=== PATIENT | female | born 1955 | race Caucasian/White ===

== ENCOUNTER 2016-10-06 21:54 | Inpatient (IN) | payer OTHER ==
[~2016-10-06] VITALS: Ht 162.6 cm; Wt 78.9 kg
[~2016-10-06 21:54] MED LIST: ZOCOR20 M1 PO
--- NOTE | 2016-10-06 22:13 | NUR ---
PER PT HAD A CT ON WEDNESDAY, CALLED BY DR LAMB WITH RESULTS, RETURNED CALL FROM GUIDO AT DR SHARP..... TOLD TO COME TO ED FOR IV ANTIBIOTICS. SCHEDULED TO SEE DR. DOMINGUEZ WEDNESDAY
--- NOTE | 2016-10-06 22:57 | NUR ---
LABS SENT (BLUE,SST,LAV,SHERMAN, BC #1)
[2016-10-06 23:01] LABS: ABSOLUTE BASOPHIL COUNT 0 /CUMM (0.0-0.2); ABSOLUTE EOSINOPHIL COUNT 0.3 /CUMM (0.0-0.7); ABSOLUTE GRANULOCYTE CT 10.3 /CUMM (1.4-6.5); ABSOLUTE LYMPH COUNT 1.4 /CUMM (1.2-3.4); ABSOLUTE MONOCYTE COUNT 0.7 /CUMM (0.10-0.60); BASOPHIL % 0.3 % (0.0-2.0); GRANULOCYTE % 80.8 % (42.2-75.2); HEMATOCRIT 35.3 % (37-47); MEAN CORPUSCULAR HGB 27.7 PG (27.0-31.0); MEAN CORPUSCULAR HGB CONC 32.7 G/DL (33.0-37.0); MEAN CORPUSCULAR VOLUME 84.7 FL (81.0-99.0); MEAN PLATELET VOLUME 6.8 FL (7.4-10.4); PLATELET COUNT 511 /CUMM (130-400); RBC DISTRIBUTION WIDTH 14.1 % (11.5-14.5); RED BLOOD CELL CT 4.17 /CUMM (4.20-5.40); WHITE BLOOD CELL COUNT 12.7 /CUMM (4.8-10.8)
[2016-10-06] MEDS ORDERED: VITAMIN D2000 UNIT PO (23:02)
[2016-10-06] MEDS ORDERED: OMEPRAZOLE40 M1 PO (23:02)
[2016-10-06] MEDS ORDERED: ADVIL200 M1 PO (23:03)
[2016-10-06] MEDS ORDERED: GLYCOLAX119 GM PO (23:03)
[2016-10-06] MEDS ORDERED: MAGNESIUM400 M1 PO (23:03)
--- NOTE | 2016-10-06 23:08 | NUR ---
BLOOD CULTURE #2 SENT
--- NOTE | 2016-10-06 23:45 | ED GI/GU/ABDOMINAL COMPLAINT ---
History of Present Illness General Chief Complaint: General Adult Stated Complaint: " SIB FOR IV ANTIBIOTIC" Source: patient, old records Exam Limitations: no limitations Vital Signs & Intake/Output Vital Signs & Intake/Output Vital Signs Date Time Temp Pulse Resp B/P B/P Pulse O2 O2 Flow FiO2 Mean Ox Delivery Rate 10/07 0024 98 Room Air 10/06 2215 97.9 81 22 129/87 98 ED Intake and Output 10/07 0000 10/06 1200 Intake Total Output Total Balance Patient 165 lb Weight Allergies Coded Allergies: oxycodone (PER PT DOES NOT WANT NARCOTICS 10/06/16) Reconcile Medications Cholecalciferol (Vitamin D3) (Vitamin D) (Unknown Strength) CAPSULE (Unknown Dose) PO DAILY SUPPLEMENT (Reported) Ibuprofen (Advil) 200 MG CAPSULE 2 CAP PO PRN PAIN (Reported) Magnesium Oxide (Magnesium) (Unknown Strength) CAPSULE (Unknown Dose) PO DAILY SUPPLEMENT (Reported) Omeprazole 40 MG CAPSULE.DR 1 CAP PO DAILY GI (Reported) Polyethylene Glycol 3350 (Glycolax) 17 GRAM/DOSE POWDER 17 GM PO PRN GI ( Reported) Simvastatin (Zocor*) 20 MG TABLET 1 TAB PO QPM CHOLESTEROL (Reported) Triage Note: PER PT HAD A CT ON WEDNESDAY, CALLED BY DR LAMB WITH RESULTS, RETURNED CALL FROM GUIDO AT DR SHARP..... TOLD TO COME TO ED FOR IV ANTIBIOTICS. SCHEDULED TO SEE DR. DOMINGUEZ WEDNESDAY Triage Nurses Notes Reviewed? yes ? N Is pt currently ? No HPI: Patient has had bilateral, but left greater than right, lower quadrant pressure feeling for the past 2 months. Patient has been seen by her crimper operator and had a normal ultrasound. Patient does have a history of diverticulosis and diverticulitis. She saw her primary care physician who put her on Flagyl. Patient took the 10 day course of Flagyl however her symptoms continued. Patient saw her chief dog license inspector who scheduled her for a colonoscopy and order an outpatient CAT scan. Patient had a CAT scan performed on the . Her chief dog license inspector has been trying to get a hold of her since then. Patient finally did talk to them today and she was instructed to come into the emergency department for IV antibiotics. Patient states the pressure sensation is constant and there are no aggravating or mitigating factors. There is no radiation. She rates it at 3 out of 10. Past History Travel History Traveled to [place] past 21 day No Medical History Any Pertinent Medical History? see below for history Neurological: NONE EENT: NONE Cardiovascular: CHOL Respiratory: NONE Gastrointestinal: CONSTIPATION, GERD Hepatic: NONE Renal: NONE Musculoskeletal: NONE Psychiatric: NONE Surgical History Surgical History: non-contributory Psychosocial History What is your primary language Northern Irish Tobacco Use: Current Daily Use Daily Tobacco Use Amount/Type: => 5 Cigarettes daily ETOH Use: RECOVERING ALCOHOLIC Illicit Drug Use: denies illicit drug use Family History Hx Contributory? No Review of Systems Review of Systems Constitutional: Reports: see HPI, chills, fever. EENTM: Reports: no symptoms. Respiratory: Reports: no symptoms. Cardiovascular: Reports: no symptoms. GI: Reports: see HPI, abdominal pain. Genitourinary: Reports: no symptoms. Musculoskeletal: Reports: no symptoms. Skin: Reports: no symptoms. Neurological/Psychological: Reports: no symptoms. Hematologic/Endocrine: Reports: no symptoms. Immunologic/Allergic: Reports: no symptoms. All Other Systems: Reviewed and Negative Physical Exam Physical Exam General Appearance: well developed/nourished, alert, awake, anxious, mild distress Head: atraumatic, normal appearance Eyes: Bilateral: PERRL, EOMI. Ears, Nose, Throat, Mouth: hearing grossly normal, moist mucous membrane Neck: normal inspection, supple, full range of motion Respiratory: normal breath sounds, chest non-tender, no respiratory distress, lungs clear Cardiovascular: regular rate/rhythm, normal peripheral pulses Gastrointestinal: normal bowel sounds, soft, no organomegaly, tenderness (LLQ), NO REBOUND OR GUARDING Back: normal inspection, normal range of motion Extremities: normal range of motion Neurologic/Psych: no motor/sensory deficits, awake, alert, oriented x 3, normal mood/affect Skin: intact, normal color, warm/dry Core Measures ACS in differential dx? No Severe Sepsis Present: No Septic Shock Present: No Progress Differential Diagnosis: AAA, biliary colic, colon cancer, diverticulitis, gastritis, hepatitis, ischemic bowel, inflamm bowel dis, pancreatitis Plan of Care: Orders Procedure Date/time Status Nothing by Mouth 10/07 B Active PROTHROMBIN TIME 10/07 599 Active CBC WITHOUT DIFFERENTIAL 10/07 599 Active BASIC ELECTROLYTES PLUS BUN&CR 10/07 599 Active Admit to inpatient 10/070 Active Pathway - chart 10/07 12 Active Patient Data 05/31 0013 Active EKG 10/07 12 Active Code Status 10/07 12 Active VTE Mechanical Prophylaxis 10/07 UNK Active Vital Signs 10/07 UNK Active Intake & Output 10/07 UNK Active Activity/Ambulation 10/07 UNK Active BLOOD CULTURE 10/06 2222 Active LACTIC ACID 10/06 2222 Complete COMPREHENSIVE METABOLIC PANEL 10/06 2222 Complete CBC WITHOUT DIFFERENTIAL 10/06 2222 Complete Current Medications Sig/Gabbi Start time Last Medication Dose Stop Time Status Admin Omeprazole 40 MG DAILY AC 10/08 0700 UNVr (Prilosec) Atorvastatin Calcium 10 MG ONCE ONE 10/07 1700 AC (Lipitor) 10/07 170 Magnesium Oxide 400 MG DAILY 10/07 1000 UNVr (Mag-Ox) Ampicillin Sodium/ 3,000 MG Q6 10/07 06 UNVr Sulbactam Sodium (Unasyn) Sodium Chloride 100 ML (Normal Saline 0.9%) Acetaminophen 650 MG Q6P PRN 10/07 14 UNVr (Tylenol) Acetaminophen/ 1 TAB Q4P PRN 10/07 14 UNVr Hydrocodone Bitart (Vicodin) Acetaminophen/ 2 TAB Q4 HRS NEEDED PRN 10/07 14 UNVr Hydrocodone Bitart (Vicodin) Dextrose/Sodium 1,000 ML Q13H 10/07 001 AC 10/07 Chloride 0030 (D5W-1/2 Normal Saline 1000ML) Morphine Sulfate 4 MG Q4 HRS NEEDED PRN 10/07 14 UNVr (Morphine) Ondansetron HCl 4 MG Q6P PRN 10/07 14 UNVr (Zofran) Promethazine HCl 12.5 MG Q6P PRN 10/07 14 UNVr (Phenergen) 10/14 001 Laboratory Tests 10/06/16 2250: Anion Gap 13, Estimated GFR > 60, BUN/Creatinine Ratio 17.8, Glucose 99, Lactic Acid 1.0, Calcium 9.2, Total Bilirubin 0.5, AST 22, ALT 36, Alkaline Phosphatase 95, Total Protein 6.5, Albumin 3.4 L, Globulin 3.1, Albumin/Globulin Ratio 1.1, CBC w Diff NO MAN DIFF REQ, RBC 4.17 L, MCV 84.7, MCH 27.7, RDW 14.1, MPV 6.8 L, Gran % 80.8 H, Lymphocytes % 11.0 L, Monocytes % 5.9, Eosinophils % 2.0, Basophils % 0.3, Absolute Granulocytes 10.3 H, Absolute Lymphocytes 1.4, Absolute Monocytes 0.7 H, Absolute Eosinophils 0.3, Absolute Basophils 0, PUBS MCHC 32.7 L Microbiology 10/06 2304 BLOOD: Blood Culture - RECD 10/06 2249 BLOOD: Blood Culture - RECD Initial ED EKG: NSR, no ST T wave changes Departure Departure Disposition: STILL A PATIENT Condition: Fair Clinical Impression Primary Impression: Diverticular disease of intestine with perforation and abscess Referrals: BAKER DANIKA WYMAN (PCP/Family) Departure Forms: Customer Survey General Discharge Information Admission Note Spoke With: ALBERTO WYMAN,ELIJAH Miles Documentation of Exam: Documentation of any treatments & extenuating circumstances including Concerns Regarding Discharge (functional status, medication knowledge or non-compliance, living conditions, etc.) that warrant an admission rather than observation: [NPO , IV FLUIDS, IV ABX, MAY REQUIRE SURGICAL INTERVENTION]
--- NOTE | 2016-10-07 00:06 | NUR ---
IV ACCESS ESTABLISHED BY THIS RN, LAC #[id number], 3G UNASYN IV INFUSING PER EMAR.
--- NOTE | 2016-10-07 00:37 | NUR ---
PT PROVIDED WITH THANIA LUGO, THIS RN SPOKE WITH SURGICAL PA BRITTNEY Montoya WHO STATED THAT PT IS ABLE TO DRINK CLEAR LIQUIDS UNTIL 0200.
--- NOTE | 2016-10-07 01:16 | NUR ---
REPORT GIVEN TO JYOTI ALEXANDER.
[2016-10-07 01:30] VITALS: BP 134/82
--- NOTE | 2016-10-07 01:30 | NUR ---
NURSING NOTE: LATE ENTRY: PT ARRIVED TO FLOOR VIA WHEELCHAIR FROM ED AT 0130. PT IS A&OX3, INDEPENDENT, ON ROOM AIR, NO DISTRESS NOTED. VSS AT THIS TIME. AFEBRILE. PTS SKIN INTACT, NO BREAKDOWN NOTED. PT IS NPO AND IS RECEIVING IV FLUIDS @ 75 ML/HR. PT DENIES PAIN BUT STATES SHE FEELS "BLOATED AND UNCOMFORTABLE". PT REPOSITIONED AND GIVEN A WARM PACK AND STATES THAT IT IS HELPING HER WITH THE "UNCOMFORTABLENESS". BELLY SOFT/DISTENDED, +BS IN ALL 4 QUADS, DENIES N/V. BS 62. PT DENIES SYMPTOMS. POSSIBLE SURGERY IN MORNING. PT VOIDING IN TOILET W/ NO DIFFICULTIES. HAT IN BATHROOM. PT SHOWN HOW TO USE CALL LIGHT SYSTEM. INFORMATION PACKET GIVEN. AWAIT FURTHER ORDERS FROM SURGICAL PA. WILL CONTINUE TO MONITOR.
[2016-10-07 06:36] VITALS: BP 118/72
--- NOTE | 2016-10-07 07:46 | PN- General Surgery ---
Subjective Subjective: Feels a little better, no abdominal pain, no nausea or vomiting, no fevers or chills. No bowel movement, passing gas. Objective Vital Signs and I&Os Vital Signs Date Time Temp Pulse Resp B/P B/P Pulse O2 O2 Flow FiO2 Mean Ox Delivery Rate 10/07 0636 98.6 85 20 118/72 94 Room Air 10/07 0130 98.3 98 20 134/82 98 Room Air 10/07 0024 98 Room Air 10/06 2215 97.9 81 22 129/87 98 Intake & Output 10/07 0800 10/07 0000 10/06 1600 10/06 0800 10/06 0000 10/05 1600 Intake Total 600 Output Total Balance 600 Intake, IV 600 Intake, Oral 0 Patient 174 lb 165 lb Weight Weight Reported by Patient Measurement Method Physical Exam: Gen.: NAD Cardiac: S1-S2 RRR Pulmonary: CTA B Abdomen: Soft, nondistended, nontender, quiet bowel sounds throughout Extremities: Calves Soft Nontender bilaterally, without edema Current Medications: Current Medications Sig/Gabbi Start time Last Medication Dose Route Stop Time Status Admin Acetaminophen 650 MG Q6P PRN 10/07 0015 AC PO Acetaminophen/ 1 TAB Q4P PRN 10/07 001 DC Hydrocodone Bitart PO Acetaminophen/ 2 TAB Q4 HRS NEEDED PRN 10/07 001 DC Hydrocodone Bitart PO Ampicillin Sodium/ 3,000 MG Q6 10/07 0600 AC 10/07 Sulbactam Sodium IV 0530 Sodium Chloride 100 ML Ampicillin Sodium/ 0 .STK-MED ONE 10/06 2359 DC Sulbactam Sodium .ROUTE Ampicillin Sodium/ 3,000 MG ONCE ONE 10/06 2345 DC 10/07 Sulbactam Sodium IV 10/07 0014 0007 Sodium Chloride 100 ML Atorvastatin Calcium 10 MG ONCE ONE 10/07 1700 AC PO 10/07 1701 Dextrose/Sodium 1,000 ML Q13H 10/07 0015 AC 10/07 Chloride IV 0030 Insulin Human Regular 0 TIDAC/HS 10/07 0800 CAN SC Insulin Human Regular 0 Q6 10/07 0739 AC SC Magnesium Oxide 400 MG DAILY 10/07 1000 AC PO Morphine Sulfate 4 MG Q4 HRS NEEDED PRN 10/07 0015 AC IV Omeprazole 40 MG DAILY AC 10/08 0700 AC PO Ondansetron HCl 4 MG Q6P PRN 05/31 0015 AC IV Promethazine HCl 12.5 MG Q6P PRN 10/07 14 AC IV 10/14 13 Tramadol HCl 50 MG Q4 PRN 10/07 99 AC PO Tramadol HCl 100 MG Q4P PRN 10/07 99 AC PO Results Last 48 Hours of Labs: Laboratory Tests 10/07 10/07 10/06 0627 0123 2250 Chemistry Sodium (137 - 145 mmol/L) Pending 136 L Potassium (3.5 - 5.1 mmol/L) Pending 3.7 Chloride (98 - 107 mmol/L) Pending 101 Carbon Dioxide (22 - 30 mmol/L) Pending 22 Anion Gap (5 - 16) Pending 13 BUN (7 - 17 mg/dL) Pending 16 Creatinine (0.5 - 1.0 mg/dL) Pending 0.9 Estimated GFR (>60 ml/min) > 60 BUN/Creatinine Ratio (7 - 25 %) Pending 17.8 Glucose (65 - 99 mg/dL) 99 Lactic Acid (0.7 - 2.1 mmol/L) Cancelled 1.0 Calcium (8.4 - 10.2 mg/dL) 9.2 Total Bilirubin (0.2 - 1.3 mg/dL) 0.5 AST (14 - 36 U/L) 22 ALT (9 - 52 U/L) 36 Alkaline Phosphatase (<127 U/L) 95 Total Protein (6.3 - 8.2 g/dL) 6.5 Albumin (3.5 - 5.0 g/dL) 3.4 L Globulin (1.9 - 4.2 gm/dL) 3.1 Albumin/Globulin Ratio (1.1 - 2.2 %) 1.1 Coagulation PT Pending INR Pending Hematology CBC w Diff Pending NO MAN DIFF REQ WBC (4.8 - 10.8 /CUMM) Pending 12.7 H RBC (4.20 - 5.40 /CUMM) Pending 4.17 L Hgb (12.0 - 16.0 G/DL) Pending 11.5 L Hct (37 - 47 %) Pending 35.3 L MCV (81.0 - 99.0 FL) Pending 84.7 MCH (27.0 - 31.0 PG) Pending 27.7 RDW (11.5 - 14.5 %) Pending 14.1 Plt Count (130 - 400 /CUMM) Pending 511 H MPV (7.4 - 10.4 FL) Pending 6.8 L Gran % (42.2 - 75.2 %) 80.8 H Lymphocytes % (20.5 - 51.1 %) 11.0 L Monocytes % (1.7 - 9.3 %) 5.9 Eosinophils % (0 - 5 %) 2.0 Basophils % (0.0 - 2.0 %) 0.3 Absolute Granulocytes (1.4 - 6.5 /CUMM) 10.3 H Absolute Lymphocytes (1.2 - 3.4 /CUMM) 1.4 Absolute Monocytes (0.10 - 0.60 /CUMM) 0.7 H Absolute Eosinophils (0.0 - 0.7 /CUMM) 0.3 Absolute Basophils (0.0 - 0.2 /CUMM) 0 PUBS MCHC (33.0 - 37.0 G/DL) Pending 32.7 L Recent Imaging Studies: 10/01/16 CT Abd/pelvis: "sigmoid colon is abnormal, shows multiple colonic diverticuli, abnormal mural thickening, surrounding pericolonic inflammatory changes, multiloculated thick-walled fluid collections associated with surrounding inflammatory changes are noted around the sigmoid colon, consistent with multiloculated pericolonic abscesses. The lowermost component measures approximately 4.8 x 2.8 cm. The middle component measures approximately 3.6 x 3.1 cm while the superior most part of the abscess measures approximately 3.3 x 2.5 cm. There are a few air pockets identified within the superiormost part of the abscess There is no evidence of any fistula visualized. There is no bowel obstruction present. There is no free perforation present. IMPRESSION: Abnormal contrast enhanced CT scan of the abdomen and pelvis showing features consistent with acute sigmoid colonic diverticulitis complicated by multiloculated abscess formation within the pelvis, without fistula formation, free perforation or superimposed obstruction." Assessment/Plan Assessment/Plan A: 61F with multiloculated pelvic collection related to sigmoid diverticulitis as visualized on CT scan performed approximately 1 week ago, leukocytosis of 13, 000 at admission, otherwise stable without abdominal complaints. P: Plan to be discussed with attending. Possible IR drainage if feasible. Will discuss with Dr. Alston and radiologist. Continue nothing by mouth with IV fluids. DVT prophylaxis. Antibiotics. A.m. labs pending Core Measures/Miscellaneous Venous Thromboembolism VTE Risk Factors: Age > 40 VTE Contraindications: No Contraindications VTE Diagnosis: No Beta Justa Is Beta Justa a Home Med? No Antibiotics Is Patient on Antibiotics? Yes
[2016-10-07 08:09] LABS: ABSOLUTE BASOPHIL COUNT 0 /CUMM (0.0-0.2); ABSOLUTE EOSINOPHIL COUNT 0.3 /CUMM (0.0-0.7); ABSOLUTE GRANULOCYTE CT 8.8 /CUMM (1.4-6.5); ABSOLUTE LYMPH COUNT 1.1 /CUMM (1.2-3.4); ABSOLUTE MONOCYTE COUNT 0.9 /CUMM (0.10-0.60); BASOPHIL % 0.3 % (0.0-2.0); EOSINOPHIL % 2.9 % (0-5); GRANULOCYTE % 79.1 % (42.2-75.2); HEMATOCRIT 33.2 % (37-47); MEAN CORPUSCULAR HGB 27.8 PG (27.0-31.0); MEAN CORPUSCULAR HGB CONC 32.7 G/DL (33.0-37.0); MEAN PLATELET VOLUME 7.3 FL (7.4-10.4); PLATELET COUNT 442 /CUMM (130-400); RBC DISTRIBUTION WIDTH 13.8 % (11.5-14.5); WHITE BLOOD CELL COUNT 11.2 /CUMM (4.8-10.8)
[2016-10-07 08:16] LABS: PT 12.6 SEC (9.4-12.5)
--- NOTE | 2016-10-07 10:48 | History & Physical Pre-Op ---
General Information and HPI MD Statement: I have seen and personally examined ADELINA QUINTERO and documented this H&P. The patient is a 61 year old F who presented with a patient stated chief complaint of []. History of Present Illness: 61-year-old woman presents with 3 months duration of lower abdominal and perirectal pain. She had an workup as an outpatient including a trial of oral antibiotics which failed to relieve her symptoms. An outpatient CT scan of the abdomen pelvis was performed which showed diverticulitis with a pericolonic abscess. She was contacted by her primary care physician to report to the emergency room for admission to the hospital. Reports her pain has not improved since her treatment began. No fevers chills or sweats. She complains of irregular bowel function and perirectal pain. She also has lower billateral abdominal pain. Allergies/Medications Allergies: Coded Allergies: oxycodone (PER PT DOES NOT WANT NARCOTICS 10/06/16) Home Med list Cholecalciferol (Vitamin D3) (Vitamin D) (Unknown Strength) CAPSULE (Unknown Dose) PO DAILY SUPPLEMENT (Reported) Ibuprofen (Advil) 200 MG CAPSULE 2 CAP PO PRN PAIN (Reported) Magnesium Oxide (Magnesium) (Unknown Strength) CAPSULE (Unknown Dose) PO DAILY SUPPLEMENT (Reported) Omeprazole 40 MG CAPSULE.DR 1 CAP PO DAILY GI (Reported) Polyethylene Glycol 3350 (Glycolax) 17 GRAM/DOSE POWDER 17 GM PO PRN GI ( Reported) Simvastatin (Zocor*) 20 MG TABLET 1 TAB PO QPM CHOLESTEROL (Reported) Past History Medical History Blood Transfusion Hx: No Neurological: NONE EENT: NONE Cardiovascular: hyperlipidemia Respiratory: NONE Gastrointestinal: diverticulitis, GERD Hepatic: NONE Renal: NONE Musculoskeletal: NONE Psychiatric: NONE Endocrine: NEWLY DIAGNOSED TYPE 2 DAIBETES History of MRSA: No History of VRE: No History of CDIFF: No Isolation History: Standard Surgical History Pertinent Surgical History: bunions Past Family/Social History Psychosocial History Where Do You Live? Home Services at Home None Smoking Status: Current Everyday Smoker ETOH Use: RECOVERING ALCOHOLIC Illicit Drug Use: denies illicit drug use Review of Systems Review of Systems: No exertional chest pain. No exertional dyspnea. Abdominal pain per HPI. Remainder 12 points negative Exam & Diagnostic Data Last 24 Hrs of Vital Signs/I&O Vital Signs Date Time Temp Pulse Resp B/P B/P Pulse O2 O2 Flow FiO2 Mean Ox Delivery Rate 0531 0636 98.6 85 20 118/72 94 Room Air 10/07 0130 98.3 98 20 134/82 98 Room Air 10/07 0024 98 Room Air 10/06 2215 97.9 81 22 129/87 98 Intake & Output 10/07 1600 10/07 0800 10/07 0000 Intake Total 600 Output Total Balance 600 Intake, IV 600 Intake, Oral 0 Number 1 Bowel Movements Patient 174 lb 165 lb Weight Weight Reported by Patient Measurement Method Physical Exam: Gen.: She looks well looks her stated age she is overweight. No distress HEENT: Anicteric PERRL EOMI Neck: Supple no adenopathy no JVD Chest: Nontender normal excursion normal effort Abdomen: Soft and tender bilateral lower quadrants and suprapubic region with involuntary guarding at the suprapubic site. There is no mass no hernias Extremities: No cyanosis clubbing or edema Last 24 Hrs of Labs/Js: Laboratory Tests 10/07/16 0627: Anion Gap 10, Estimated GFR > 60, BUN/Creatinine Ratio 21.7, PT 12.6 H, INR 1.20 H, CBC w Diff NO MAN DIFF REQ, RBC 3.90 L, MCV 85.0, MCH 27.8, RDW 13.8, MPV 7.3 L, Gran % 79.1 H, Lymphocytes % 9.4 L, Monocytes % 8.3, Eosinophils % 2.9, Basophils % 0.3, Absolute Granulocytes 8.8 H, Absolute Lymphocytes 1.1 L, Absolute Monocytes 0.9 H, Absolute Eosinophils 0.3, Absolute Basophils 0, PUBS MCHC 32.7 L 10/07/16 0123: Lactic Acid Cancelled 10/06/16 2250: Anion Gap 13, Estimated GFR > 60, BUN/Creatinine Ratio 17.8, Glucose 99, Lactic Acid 1.0, Calcium 9.2, Total Bilirubin 0.5, AST 22, ALT 36, Alkaline Phosphatase 95, Total Protein 6.5, Albumin 3.4 L, Globulin 3.1, Albumin/Globulin Ratio 1.1, CBC w Diff NO MAN DIFF REQ, RBC 4.17 L, MCV 84.7, MCH 27.7, RDW 14.1, MPV 6.8 L, Gran % 80.8 H, Lymphocytes % 11.0 L, Monocytes % 5.9, Eosinophils % 2.0, Basophils % 0.3, Absolute Granulocytes 10.3 H, Absolute Lymphocytes 1.4, Absolute Monocytes 0.7 H, Absolute Eosinophils 0.3, Absolute Basophils 0, PUBS MCHC 32.7 L Microbiology 10/06 2305 BLOOD: Blood Culture - RECD 10/06 2249 BLOOD: Blood Culture - RECD Diagnostic Data Other Results CT scan of the abdomen pelvis performed on 10/02/2015 was personally reviewed. Findings show multiple loops of sigmoid colon in the pelvis with a multiloculated pericolonic abscess deep in the pelvis. Images were personally reviewed with interventional radiologist who felt that a transgluteal approach could access one aspect of the abscess cavity. Assessment/Plan Assessment/Plan: This is a 61-year-old woman with prior episodes of acute diverticulitis all of which resolved with medical treatment. She now presents with complex abscess, pericolonic related to the likely acute diverticulitis. Her last colonoscopy was in 2007 and showed benign disease. At this point recommendations be made to continue medical management with IV broad-spectrum antibiotics, bowel rest. She will be taken to the interventional radiology suite for percutaneously drainage of the inferior most abscess. Hopefully they'll communicate with one another and can be drained through one site. Eventually colonic resection will be necessary given the extent of the abscess. Hopefully her infectious process can be temporized such that a single- stage resection can be performed at a later date. As Ranked By This Provider Problem List: 1. Diverticular disease of intestine with perforation and abscess Copies To: SHELTON AGUILAR APRN; OLIVIA WYMAN,DANIKA Florentino
--- NOTE | 2016-10-07 11:11 | NUR ---
nursing note: pt to have perc drain placement in IR; PT REQUESTING NO NARCOTICS DUE TO HX OF ETOH YEARS AGO. BRADLEY IN IR CALLED AND MADE AWARE, NOTE PLACE ON PREPROCEDURE CHECKLIST ALSO.
[2016-10-07 13:32] VITALS: BP 118/70
--- NOTE | 2016-10-07 13:36 | NUR ---
NURSING NOTE: PT LEFT FLOOR VIA STRETCHER WITH DISTIRBUTION FOR PERC DRAINAGE PLACEMENT IN IR. PT AWAKE, A/OX3, ROOM AIR, VITALS OBTAINED AND DOCUEMNTED, NPO. PT DENIES PAIN, DENTURES REMOVED, RINGS/NECKLACES ON PER PT; OK PER BRADLEY IN IR. AWAIT RETURN TO FLOOR
[2016-10-07 17:30] VITALS: BP 116/60
--- NOTE | 2016-10-07 17:53 | CT SCAN REPORT ---
PROCEDURE: CT PERCUTANEOUS PELVIC ABSCESS DRAINAGE CLINICAL INFORMATION: 61-year-old woman with a history of diverticular disease presenting with pelvic pain and low-grade fevers. Recent CT of the abdomen and pelvis was suggestive of the presence of multiple loculated diverticular pelvic abscesses. COMPARISON: CT of the abdomen and pelvis dated 10/01/2016. CORPORATE COMPLIANCE DIRECTOR: Evens Churchill M.D. DESCRIPTION: The patient was referred by Dr. Fredis Alston. Informed consent was obtained from the patient prior to the procedure. During this process, the procedure and potential alternatives was explained, along with the intended outcome and benefits. The risks of the procedure, as well as the risk of not doing the procedure, were discussed. The patient was given the opportunity to ask questions regarding the procedure and appeared competent to make medical decisions. A signed consent form which documents this discussion was placed in the medical record. The patient's prior imaging studies were reviewed. The patient was brought to the CT suite and a final timeout procedure was performed. The patient was placed prone in the CT gantry. IV moderate sedation was induced under my direction and supervision using Versed and fentanyl. The patient was continuously monitored by registered nurse. At no time was there evidence of instability. Bearing Press Machine Operator sections were obtained through the pelvis with a grid overlying the left buttock region. The abscesses were less conspicuous than on the prior CT and the sigmoid colon was not optimally opacified. The patient was rescanned with administration of rectal contrast administered with a balloon retention catheter under gravity. The previously described central collection in the upper pelvis opacified and appear to be connected to the sigmoid colon. There appear to be an ovoid inflammatory process in the lower left pelvis adjacent to the sigmoid colon at the level of the sciatic notch. The overlying soft tissues were sterilely prepped and draped. Maximum sterile barrier technique was maintained throughout the procedure. Superficial and deep anesthesia was administered using 1% lidocaine. Under CT fluoroscopic guidance, an 18-gauge [place] needle was introduced into the left perisigmoid collection via a left transgluteal approach maintaining a close proximity to the lateral margin of the sacrum. Approximately 3 mL of thick bloody pus was aspirated. The specimen was sent to microbiology for culture and sensitivity. Over an Amplatz stiff wire, serial fascial dilatations were performed allowing insertion of a 14 [place] locking pigtail catheter. A hand-injection of dilute contrast was performed through the drainage catheter which did not definitively demonstrate a connection to the sigmoid colon or the other questioned pelvic abscesses. The catheter was secured with 0-0 silk suture and a StatLock. A sterile dressing was applied. The catheter was connected to a gravity bag drainage. The patient tolerated the procedure well. There was no evidence of complications. DLP: 390.3 mGy-cm SEDATION TIME: 55 minutes SEDATION MEDICATIONS: 3 mg Versed, 150 mcg fentanyl COMPLICATIONS: None BLOOD LOSS: Scant IMPRESSION: Successful percutaneous drainage of a left lower perisigmoid hematoma/abscess via a transgluteal approach under CT fluoroscopic guidance. Specimen was sent for culture and sensitivity.
--- NOTE | 2016-10-07 18:01 | NUR ---
1725 PATIENT BACK ON FLOOR ALERT AND ORIENTED X 3. ON ROOM AIR. DENIES SHORTNESS OF BREATH. VITAL SIGNS STABLE. DENIES CHEST PAIN. + PULSES. DENIES NUMB/TINGLE DSG IS C/D/I. STEADY GAIT. SKIN C/D/I PATIENT RESTING AT THIS TIME. WILL CONTINUE TO MONITOR
[2016-10-07 19:48] VITALS: BP 110/62
[2016-10-07 21:52] VITALS: BP 128/68
[2016-10-08 02:01] VITALS: BP 110/58
[2016-10-08 06:15] VITALS: BP 120/64
[2016-10-08 07:59] LABS: ABSOLUTE BASOPHIL COUNT 0 /CUMM (0.0-0.2); ABSOLUTE EOSINOPHIL COUNT 0.1 /CUMM (0.0-0.7); ABSOLUTE GRANULOCYTE CT 9.3 /CUMM (1.4-6.5); ABSOLUTE LYMPH COUNT 1.1 /CUMM (1.2-3.4); ABSOLUTE MONOCYTE COUNT 0.9 /CUMM (0.10-0.60); BASOPHIL % 0.3 % (0.0-2.0); GRANULOCYTE % 81.7 % (42.2-75.2); HEMATOCRIT 31.8 % (37-47); MEAN CORPUSCULAR HGB 27.9 PG (27.0-31.0); MEAN CORPUSCULAR HGB CONC 32.7 G/DL (33.0-37.0); MEAN CORPUSCULAR VOLUME 85.3 FL (81.0-99.0); MEAN PLATELET VOLUME 7.2 FL (7.4-10.4); PLATELET COUNT 436 /CUMM (130-400); RBC DISTRIBUTION WIDTH 14.2 % (11.5-14.5); RED BLOOD CELL CT 3.73 /CUMM (4.20-5.40); WHITE BLOOD CELL COUNT 11.4 /CUMM (4.8-10.8)
--- NOTE | 2016-10-08 08:55 | PN- General Surgery ---
See Addendum Subjective Subjective: PT. STATES THAT HER PAIN IS NEARLY RESOLVED SINCE YESTERDAY. SHE DESCRIBES PAIN "SORENESS" REPORTS PASSING SMALL FLATUS Objective Vital Signs and I&Os Vital Signs Date Time Temp Pulse Resp B/P B/P Pulse O2 O2 Flow FiO2 Mean Ox Delivery Rate 10/08 0804 96 Room Air 10/08 0615 98.0 72 20 120/64 94 Room Air 10/08 0201 98.1 78 22 110/58 94 Room Air 10/07 2152 98.5 80 20 128/68 93 Room Air 10/07 1948 98.7 75 20 110/62 93 Room Air 10/07 1730 98.8 84 18 116/60 95 Room Air 10/07 1332 98.9 90 20 118/70 96 Room Air Intake & Output 10/08 1600 10/08 0800 10/08 0000 10/07 1600 10/07 0800 10/07 0000 Intake Total 650 600 600 Output Total 200 550 Balance 650 -200 50 600 Intake, IV 650 600 600 Intake, Oral 0 0 Number 1 Bowel Movements Output, Urine 200 550 Patient 174 lb 165 lb Weight Weight Reported by Patient Measurement Method ALERT, ORIENTED, LOOKS COMFORTABLE LUNGS CLEAR BILAT ABDOMEN OBESE, SOFT, NON DISTENDED, MINIMAL TENDERNESS TO PALPATION IN LOWER ABDOMEN/LLQ. IR DRAIN IN PLACED THROUGH BUTTOCK WITH ESSENTIALLY NO OUTPUT OVER NIGHT Assessment/Plan Assessment/Plan PT. ADMITTED WITH MULTIPLE TOMMIE SIGMOID COLONIC DIVERTICULAR ABSCESSES HOSP. DAY #2 SHE UNDERWENT IR DRAIN PLACEMENT YESTERDAY WHERE 3 CC OF THICK PUS WAS ASPIRATED IN IR AND TOMMIE GLUTEAL DRAIN WAS PLACED. THERE IS ESSENTIALLY NO OUTPUT OVER NIGHT SINCE. CLINICALLY SHE FEELS BETTER, HAS LESS PAIN , NO FEVER. SHE HAS MILD PERSISTENT LEUKOCYTOSIS. I AM CONCERNED HER ABSCESSES ARE NOT TOTALLY DRAINED SINCE THERE IS NO OUTPUT FROM CURRENT DRAIN DESPITE FLUSHES AND GIVEN SHE HAD OTHER COLLECTIONS DOCUMENTED ON CT. WILL DISCUSS CASE AND REVIEW CT SCAN WITH SURGEON, DR DOMINGUEZ. WILL AWAIT ADVANCING DIET TILL DISCUSSED FURTHER PLAN. CONT. UNASYN TILL FINAL CULTURES ARE AVAILABLE. Core Measures/Miscellaneous Venous Thromboembolism VTE Risk Factors: Age > 40 VTE Contraindications: No Contraindications VTE Diagnosis: No Beta Justa Is Beta Justa a Home Med? No Antibiotics Is Patient on Antibiotics? Yes
[2016-10-08 09:14] VITALS: BP 124/68
--- NOTE | 2016-10-08 11:35 | NUR ---
NURSING NOTE: FSG 83, NO INSULIN GIVEN, IVF PER MD ORDER, ZACARIAS IBANEZ AND DR DOMINGUEZ AWARE, PT TO BE ADVANCED TO FULL LIQUID DIET. PT UPDATED. SFATEY MAINTAINED, NEEDS IN REACH
[2016-10-08 14:15] VITALS: BP 98/57
--- NOTE | 2016-10-08 14:17 | NUR ---
NURSING SHIFT NOTE: PT REMAINS AWAKE, A/OX3, ROOM AIR, DIET ADVANCED TO FULL LIQUID; PT TOLERATED LUNCH, PERC DRAIN TO L BACK REMAINS IN PLACE; FLUSHED WITH 10ML NS PER MD ORDER; NO DRAINAGE THIS SHIFT. PT RECEIVED ULTRAM AT 0800AM; DENIES NEED FOR IT SINCE, VISITING WITH FRIENDS AT THIS TIME, IVF PER MD ORDER. STEADY GAIT NOTED, SFATEY MAINTAINED, NEEDS IN REACH.
[2016-10-08 14:30] VITALS: BP 108/70
[2016-10-08 21:54] VITALS: BP 104/52
[2016-10-09 07:22] VITALS: BP 118/62
[2016-10-09 08:09] LABS: ABSOLUTE BASOPHIL COUNT 0 /CUMM (0.0-0.2); ABSOLUTE EOSINOPHIL COUNT 0.2 /CUMM (0.0-0.7); ABSOLUTE GRANULOCYTE CT 10.1 /CUMM (1.4-6.5); ABSOLUTE LYMPH COUNT 1.2 /CUMM (1.2-3.4); ABSOLUTE MONOCYTE COUNT 0.9 /CUMM (0.10-0.60); BASOPHIL % 0.3 % (0.0-2.0); EOSINOPHIL % 1.6 % (0-5); HEMATOCRIT 30.3 % (37-47); MEAN CORPUSCULAR HGB 27.7 PG (27.0-31.0); MEAN CORPUSCULAR HGB CONC 32.4 G/DL (33.0-37.0); MEAN CORPUSCULAR VOLUME 85.3 FL (81.0-99.0); MEAN PLATELET VOLUME 7.3 FL (7.4-10.4); PLATELET COUNT 386 /CUMM (130-400); RBC DISTRIBUTION WIDTH 14.2 % (11.5-14.5); RED BLOOD CELL CT 3.55 /CUMM (4.20-5.40); WHITE BLOOD CELL COUNT 12.5 /CUMM (4.8-10.8)
--- NOTE | 2016-10-09 08:12 | PN- General Surgery ---
See Addendum Subjective Subjective: Patient feeling better today, pain is much less, she has a better appetite, no fever or flulike illness. She had a very small soft light brown bowel movement this morning. She is tolerating a full liquid diet Objective Vital Signs and I&Os Vital Signs Date Time Temp Pulse Resp B/P B/P Pulse O2 O2 Flow FiO2 Mean Ox Delivery Rate 10/09 0722 98.3 78 20 118/62 94 10/08 2154 98.7 83 19 104/52 95 10/08 1430 80 108/70 10/08 1415 97.8 83 20 98/57 94 Room Air 10/08 0914 98.0 80 20 124/68 98 Room Air Intake & Output 10/09 1600 10/09 0800 10/09 0000 10/08 1600 10/08 0800 10/08 0000 Intake Total 1200 1550 650 Output Total 100 300 700 200 Balance -100 900 850 650 -200 Intake, IV 600 600 650 Intake, Oral 600 950 Number 0 Bowel Movements Output, 0 0 Drainage Output, Urine 100 300 700 200 Physical Exam: Well-developed well-nourished no apparent distress. HEENT: Atraumatic, extraocular motion intact Neck: Supple, no lymphadenopathy Respiratory: No respiratory distress Abdomen: Mild tenderness left lower quadrant and suprapubic region. Abdomen is soft. Posterior drain with minimal amount in the tubing, thick serous sanguinous discharge. Extremities: No edema, no calf pain Neuro: Alert and oriented x3 Psych: Mood affect normal, normal memory normal judgment. Skin: Warm and dry, no rash on exposed skin Results Last 48 Hours of Labs: Laboratory Tests 10/09 10/08 0640 0632 Chemistry Sodium (137 - 145 mmol/L) Pending 138 Potassium (3.5 - 5.1 mmol/L) Pending 3.9 Chloride (98 - 107 mmol/L) Pending 106 Carbon Dioxide (22 - 30 mmol/L) Pending 24 Anion Gap (5 - 16) Pending 8 BUN (7 - 17 mg/dL) Pending 12 Creatinine (0.5 - 1.0 mg/dL) Pending 0.6 Estimated GFR (>60 ml/min) > 60 BUN/Creatinine Ratio (7 - 25 %) Pending 20.0 Hematology CBC w Diff Pending NO MAN DIFF REQ WBC (4.8 - 10.8 /CUMM) Pending 11.4 H RBC (4.20 - 5.40 /CUMM) Pending 3.73 L Hgb (12.0 - 16.0 G/DL) Pending 10.4 L Hct (37 - 47 %) Pending 31.8 L MCV (81.0 - 99.0 FL) Pending 85.3 MCH (27.0 - 31.0 PG) Pending 27.9 RDW (11.5 - 14.5 %) Pending 14.2 Plt Count (130 - 400 /CUMM) Pending 436 H MPV (7.4 - 10.4 FL) Pending 7.2 L Gran % (42.2 - 75.2 %) 81.7 H Lymphocytes % (20.5 - 51.1 %) 9.5 L Monocytes % (1.7 - 9.3 %) 7.5 Eosinophils % (0 - 5 %) 1.0 Basophils % (0.0 - 2.0 %) 0.3 Absolute Granulocytes (1.4 - 6.5 /CUMM) 9.3 H Absolute Lymphocytes (1.2 - 3.4 /CUMM) 1.1 L Absolute Monocytes (0.10 - 0.60 /CUMM) 0.9 H Absolute Eosinophils (0.0 - 0.7 /CUMM) 0.1 Absolute Basophils (0.0 - 0.2 /CUMM) 0 PUBS MCHC (33.0 - 37.0 G/DL) Pending 32.7 L Assessment/Plan Assessment/Plan Hospital day #3 foR diverticulitis with abscess, post procedure day 2 status post eye or drainage of abscess. Patient progressing well as expected, cultures yesterday show no growth for 1 day, awaiting update this afternoon She is tolerating a full liquid diet, discontinue IV fluids, possible advance later today, will discuss with Dr. Alston Await morning labs Drain with minimal output, possible DC today, will discuss with Dr. Alston Continue IV Unasyn Pain medication as needed Out of bed ad jayla. Core Measures/Miscellaneous Venous Thromboembolism VTE Risk Factors: Age > 40 VTE Contraindications: No Contraindications VTE Diagnosis: No Beta Justa Is Beta Justa a Home Med? No Antibiotics Is Patient on Antibiotics? Yes
--- NOTE | 2016-10-09 12:55 | NUR ---
NURSING NOTE: REPORT GIVEN TO LIZBET; NEXT SHIFT RN AT THIS TIME, PT REMAINS AWAKE, A/OX3, ROOM AIR, DENIES PAIN, OOB INDEP, HAT IN TOILET, IV ANTIBX INFUSING, PERC DRAIN TO L BACK IN PLACE. PT DONNA LOW FIBER DIET FOR LUNCH, NEEDS IN REACH, SAFTEY MAINTAINED
[2016-10-09 15:17] VITALS: BP 103/60
[2016-10-09 23:51] VITALS: BP 117/57
[2016-10-10 06:48] VITALS: BP 116/80
--- NOTE | 2016-10-10 09:15 | PN- General Surgery ---
See Addendum Subjective Subjective: Awake, alert Complaining of 3 episodes overnight of loose stools and nausea overngiht. Feeling okay presently but wasn't interested in eating breakfast due to mild nausea Tolerated LRD yesterday Is interested in trying lunch later Objective Vital Signs and I&Os Vital Signs Date Time Temp Pulse Resp B/P B/P Pulse O2 O2 Flow FiO2 Mean Ox Delivery Rate 10/10 0648 97.6 86 20 116/80 94 Room Air 10/09 2351 98.6 78 20 117/57 95 Room Air 10/09 1517 98.0 68 20 103/60 94 Room Air Intake & Output 10/10 1600 10/10 0800 / 0000 10/09 1600 10/09 0800 10/09 0000 Intake Total 740 300 495 728 3944 Output Total 10 0 800 100 300 Balance 730 300 100 500 900 Intake, IV 260 100 600 600 Intake, Oral 480 300 800 600 Number 1 Bowel Movements Output, 10 0 0 0 Drainage Output, Urine 800 100 300 Patient 174 lb Weight Physical Exam: afebrile, vss General: alert and oriented times three Chest: clear anteriorly bilaterally, RRR Abd: soft, good bs, nondistended Ext: warm, no edema IR drain: 10cc overnight Currently nothing is in the bag, there is some purulend fluid in the tubing Assessment/Plan Assessment/Plan 61yo female with complicated diverticulitis with abscess s/p IR drain placed 10/07 await final cultures/sensitivities continue unasyn for now continue lrd at lunch continue present care - pt doesn't feel as great as she did yesterday - will reassess later today Core Measures/Miscellaneous Venous Thromboembolism VTE Risk Factors: Age > 40 VTE Contraindications: No Contraindications VTE Diagnosis: No Beta Justa Is Beta Justa a Home Med? No Antibiotics Is Patient on Antibiotics? Yes
--- NOTE | 2016-10-10 12:35 | NUR ---
JAZMÍN NOTE: PT STATED"I THINK I HAVE A FEVER." ORAL TEMP 101.0, J JULIENNE IBANEZ CALLED AND AWARE, TYLENOL GIVEN PER HER/PRN ORDER. WILL RECHECK TEMP IN 1 HOUR. CBC ORDERED AND MST TO DRAWN.
--- NOTE | 2016-10-10 13:38 | NUR ---
NURSING NOTE: TEMP RECHECK 99.5, PT STATES "I FEEL LIKE MY FEVER BROKE" PA AWARE, NEEDS IN REACH, SAFETY MAINTAINED
[2016-10-10 14:45] LABS: ABSOLUTE BASOPHIL COUNT 0 /CUMM (0.0-0.2); ABSOLUTE EOSINOPHIL COUNT 0 /CUMM (0.0-0.7); ABSOLUTE LYMPH COUNT 0.5 /CUMM (1.2-3.4); BASOPHIL % 0 % (0.0-2.0); EOSINOPHIL % 0.2 % (0-5); HEMATOCRIT 32.4 % (37-47)
[2016-10-10 14:59] VITALS: BP 108/58
[2016-10-10 15:45] LABS: ABSOLUTE GRANULOCYTE CT 18.5 /CUMM (1.4-6.5); ABSOLUTE MONOCYTE COUNT 0.5 /CUMM (0.10-0.60); GRANULOCYTE % 94.5 % (42.2-75.2); MEAN CORPUSCULAR HGB 27.8 PG (27.0-31.0); MEAN CORPUSCULAR HGB CONC 32.7 G/DL (33.0-37.0); MEAN PLATELET VOLUME 7.7 FL (7.4-10.4); PLATELET COUNT 414 /CUMM (130-400); RBC DISTRIBUTION WIDTH 14.1 % (11.5-14.5); RED BLOOD CELL CT 3.81 /CUMM (4.20-5.40)
[2016-10-10 15:48] LABS: WHITE BLOOD CELL COUNT 19.6 /CUMM (4.8-10.8)
[2016-10-10 22:30] VITALS: BP 112/58
[2016-10-11 07:56] VITALS: BP 112/58
--- NOTE | 2016-10-11 08:30 | PN- General Surgery ---
See Addendum Subjective Subjective: Patient feeling better today than she did yesterday. She had 3 episodes of loose bowel movements last night, is passing gas, no bowel movements this morning. Her pain is less. She denies any fever or flulike illness suggestive afternoon Objective Vital Signs and I&Os Vital Signs Date Time Temp Pulse Resp B/P B/P Pulse O2 O2 Flow FiO2 Mean Ox Delivery Rate 10/11 0756 98.8 74 18 112/58 94 Room Air 10/10 2230 98.5 73 16 112/58 94 Room Air 10/10 1459 98.6 72 20 108/58 94 Room Air 10/10 1339 99.5 10/10 1338 99.5 10/10 1240 101.0 10/10 1237 101.0 Intake & Output 10/11 1600 10/11 0800 10/11 0000 10/10 1600 10/10 0800 10/10 0000 Intake Total 780 900 800 740 300 Output Total 0 410 660 10 0 Balance 780 490 140 730 300 Intake, IV 300 100 260 Intake, Oral 480 900 700 480 300 Number 0 0 Bowel Movements Output, 0 10 10 10 0 Drainage Output, Urine 400 650 Physical Exam: Well-developed well-nourished no apparent distress. HEENT: Atraumatic, extraocular motion intact Neck: Supple, no lymphadenopathy Respiratory: No respiratory distress Abdomen: Soft, minimally tender left lower quadrant. Left lower back drain site with small amount of thick purulent discharge in the tubing Extremities: No edema, no calf pain Neuro: Alert and oriented x3 Psych: Mood affect normal, normal memory normal judgment. Skin: Warm and dry, no rash on exposed skin Results Last 48 Hours of Labs: Laboratory Tests 10/11 10/10 0636 1305 Chemistry Sodium Pending Potassium Pending Chloride Pending Carbon Dioxide Pending Anion Gap Pending BUN Pending Creatinine Pending BUN/Creatinine Ratio Pending Hematology CBC w Diff Pending MAN DIFF ORDERED WBC (4.8 - 10.8 /CUMM) Pending 19.6 H RBC (4.20 - 5.40 /CUMM) Pending 3.81 L Hgb (12.0 - 16.0 G/DL) Pending 10.6 L Hct (37 - 47 %) Pending 32.4 L MCV (81.0 - 99.0 FL) Pending 85.0 MCH (27.0 - 31.0 PG) Pending 27.8 RDW (11.5 - 14.5 %) Pending 14.1 Plt Count (130 - 400 /CUMM) Pending 414 H MPV (7.4 - 10.4 FL) Pending 7.7 Gran % (42.2 - 75.2 %) 94.5 H Lymphocytes % (20.5 - 51.1 %) 2.5 L Monocytes % (1.7 - 9.3 %) 2.8 Eosinophils % (0 - 5 %) 0.2 Basophils % (0.0 - 2.0 %) 0 L Absolute Granulocytes (1.4 - 6.5 /CUMM) 18.5 H Segmented Neutrophils (42.2 - 75.2 %) 90 H Band Neutrophils (0.0 - 5.0 %) 5 Absolute Lymphocytes (1.2 - 3.4 /CUMM) 0.5 L Lymphocytes (20.5 - 51.1 %) 2 L Monocytes (1.7 - 9.3 %) 3 Absolute Monocytes (0.10 - 0.60 /CUMM) 0.5 Absolute Eosinophils (0.0 - 0.7 /CUMM) 0 Absolute Basophils (0.0 - 0.2 /CUMM) 0 Platelet Estimate (ADEQUATE) INCREASED Normocytic RBCs VERIFIED Normochromic RBCs VERIFIED PUBS MCHC (33.0 - 37.0 G/DL) Pending 32.7 L Other Body Source Fld Total RBCs Counted (%) 100 Assessment/Plan Assessment/Plan 61yo female with complicated diverticulitis with abscess s/p IR drain placed 10/07 Final cultures of the IR placed drain shows Escherichia coli which has intermediate sensitivity to Unasyn which patient was on. Yesterday afternoon she was switched to Ancef and Flagyl IV and seems to be doing better. Blood cultures negative thus far from 10/06 continue lrd Pain medication as needed Consider repeat CT scan if she continues spiking fevers or white count continues to elevate however clinically looks well Follow labs this morning Core Measures/Miscellaneous Venous Thromboembolism VTE Risk Factors: Age > 40 VTE Contraindications: No Contraindications VTE Diagnosis: No Beta Justa Is Beta Justa a Home Med? No Antibiotics Is Patient on Antibiotics? Yes
[2016-10-11 08:31] LABS: ABSOLUTE BASOPHIL COUNT 0 /CUMM (0.0-0.2); ABSOLUTE EOSINOPHIL COUNT 0 /CUMM (0.0-0.7); ABSOLUTE GRANULOCYTE CT 12.3 /CUMM (1.4-6.5); ABSOLUTE LYMPH COUNT 0.9 /CUMM (1.2-3.4); ABSOLUTE MONOCYTE COUNT 0.6 /CUMM (0.10-0.60); BASOPHIL % 0.1 % (0.0-2.0); EOSINOPHIL % 0.3 % (0-5); HEMATOCRIT 31.1 % (37-47); MEAN CORPUSCULAR HGB CONC 32.8 G/DL (33.0-37.0); MEAN CORPUSCULAR VOLUME 85.4 FL (81.0-99.0); MEAN PLATELET VOLUME 7.3 FL (7.4-10.4); PLATELET COUNT 405 /CUMM (130-400); RBC DISTRIBUTION WIDTH 14.3 % (11.5-14.5); RED BLOOD CELL CT 3.64 /CUMM (4.20-5.40)
[2016-10-11 09:36] LABS: GRANULOCYTE % 88.4 % (42.2-75.2)
--- NOTE | 2016-10-11 14:37 | NUR ---
NURSING SHIFT NOTE: PT REMAINS AWAKE, A/OX3, ROOM AIR, DENIES PAIN AT THIS TIME, PERC DRAIN FLUSHED PER MD ORDER; OUTPUT OF 10ML THIS SHIFT; NAVARRO IN COLOR. IV ANTIBX GIVEN PER EMAR/MD ORDER, DENIES NAUSEA, NO BM THIS SHIFT, TOLERATING DIET. NEEDS IN REACH, SAFTEY MAINTAINED, WILL GIVE REPORT TO NEXT SHIFT RN
[2016-10-11 14:46] VITALS: BP 126/68
--- NOTE | 2016-10-11 20:32 | NUR ---
ALERT AND ORIENTED X 3. ON ROOM AIR. DENIES SHORTNESS OF BREATH VITAL SIGNS STABLE. DENIES CHEST PAIN. + PULSES. DENIES NUMBNESS/TINGLING NO EDEMA. SKIN C/D/I. PERC DRAIN TO LOWER L BACK. NAVARRO DRAINAGE NOTED NO DISCOMFORT NOTED. STEADY GAIT. WILL CONTINUE TO MONITOR
[2016-10-11 22:57] VITALS: BP 128/60
--- NOTE | 2016-10-12 06:54 | PN- General Surgery ---
See Addendum Subjective Subjective: The patient was seen this morning. She reports feeling comfortable and tolerating a low-residue diet without change in pain. She denies any nausea or vomiting and has no other complaints. Objective Vital Signs and I&Os Vital Signs Date Time Temp Pulse Resp B/P B/P Pulse O2 O2 Flow FiO2 Mean Ox Delivery Rate 10/11 2257 98.8 85 18 128/60 95 Room Air 10/11 1446 98.2 69 20 126/68 93 Room Air 10/11 0756 98.8 74 18 112/58 94 Room Air Intake & Output 10/12 0800 10/12 0000 10/11 1600 10/11 0800 10/11 0000 10/10 1600 Intake Total 500 1000 780 900 800 Output Total 375 10 0 410 660 Balance 125 990 780 490 140 Intake, IV 200 300 100 Intake, Oral 500 800 480 900 700 Number 0 0 0 Bowel Movements Output, 10 0 10 10 Drainage Output, Urine 375 400 650 Physical Exam: Gen.: Alert and in no obvious distress Skin: Warm and dry Abdomen: Soft, obese, mild left lower quadrant tenderness with some rebound but no guarding, bowel sounds positive. Percutaneous drain in place with seropurulent drainage in the bag Extremities: Bilateral lower extremities are warm without calf tenderness or significant edema. Assessment/Plan Assessment/Plan Assessment: 61-year-old female status post placement of a percutaneous drain by interventional radiology for perforated diverticulitis with abscess. The patient's antibiotic regiment has been changed based on cultures. The patient's white count has gone down, she has remained afebrile, and her exam is relatively expected. Plan: Continue current antibiotic regimen Low-residue diet Follow-up morning laboratory studies GI and DVT prophylaxis Possible reimaging once drain output has tapered off Core Measures/Miscellaneous Venous Thromboembolism VTE Risk Factors: Age > 40 VTE Contraindications: No Contraindications VTE Diagnosis: No Beta Justa Is Beta Justa a Home Med? No Antibiotics Is Patient on Antibiotics? Yes
[2016-10-12 07:19] VITALS: BP 120/62
[2016-10-12 08:09] LABS: ABSOLUTE BASOPHIL COUNT 0 /CUMM (0.0-0.2); ABSOLUTE EOSINOPHIL COUNT 0.1 /CUMM (0.0-0.7); ABSOLUTE GRANULOCYTE CT 11.8 /CUMM (1.4-6.5); ABSOLUTE LYMPH COUNT 0.9 /CUMM (1.2-3.4); ABSOLUTE MONOCYTE COUNT 0.7 /CUMM (0.10-0.60); BASOPHIL % 0.1 % (0.0-2.0); EOSINOPHIL % 0.8 % (0-5); HEMATOCRIT 32.4 % (37-47); MEAN CORPUSCULAR HGB 27.6 PG (27.0-31.0); MEAN CORPUSCULAR HGB CONC 32.5 G/DL (33.0-37.0); MEAN PLATELET VOLUME 7.2 FL (7.4-10.4); PLATELET COUNT 437 /CUMM (130-400); RBC DISTRIBUTION WIDTH 14.2 % (11.5-14.5); RED BLOOD CELL CT 3.81 /CUMM (4.20-5.40); WHITE BLOOD CELL COUNT 13.6 /CUMM (4.8-10.8)
[2016-10-12 14:10] VITALS: BP 126/68
--- NOTE | 2016-10-12 17:20 | NUR ---
NURSING NOTE: PATIENT LEFT FLOOR FOR CT SCAN. IV IN PLACE. PATIENT A/OX3, DENIES PAIN. C/O NAUSEA WHICH WAS ADMINISTERED PRIOR TO LEAVING FLOOR. WILL AWAIT RETURN.
--- NOTE | 2016-10-12 17:34 | NUR ---
NURSING NOTE: PATIENT RETURNED TO FLOOR AT THIS TIME. A/OX3, DENIES PAIN. NAUSEA GONE. WILL CONTINUE TO MONITOR.
--- NOTE | 2016-10-12 19:48 | CT SCAN REPORT ---
EXAMINATION: CT ABDOMEN AND PELVIS WITH CONTRAST CLINICAL INFORMATION: Diverticular abscess status post IR drain. Abdominal pain. Assess abscess COMPARISON: 10/07/2016 and earlier TECHNIQUE: Multidetector volumetric imaging was performed of the abdomen and pelvis before and after the IV administration of 95 mL of Optiray 320 intravenous contrast. Sagittal and coronal reformatted images were obtained on the technologist's workstation. DLP: 633 mGy-cm FINDINGS: LUNG BASES: There is an irregular triangular nodule in the right middle lobe measuring 5-6 mm, series 2, image 95. There is linear atelectasis in the right lower lobe and right middle lobe. A tiny right pleural effusion is present. LIVER, GALLBLADDER, AND BILIARY TREE: The liver is normal in size, shape, and attenuation. Low density adjacent the fissure of the falciform ligament likely represents areas of focal fatty infiltration. No suspicious focal liver lesion. No biliary ductal dilatation is present. The gallbladder is unremarkable with no evidence of radiopaque gallstones, gallbladder wall thickening, or obvious pericholecystic inflammatory changes. PANCREAS: Unremarkable. SPLEEN: Unremarkable. ADRENAL GLANDS: Unremarkable. KIDNEYS AND URETERS: The kidneys are normal in size, shape, and attenuation. No hydronephrosis, hydroureter, or calculi seen. No perinephric stranding. There may be a tiny subcentimeter cyst in the posterior cortex of the left mid kidney, present previously as well. BLADDER: Unremarkable. GASTROINTESTINAL TRACT: The stomach is distended with oral contrast. There is oral contrast throughout the small bowel to the sigmoid colon. Again noted is moderate sigmoid diverticulosis. There is persistent wall thickening of the sigmoid colon with adjacent fluid and fat stranding. New from the prior study, there is a left gluteal approach percutaneous pigtail drainage catheter coiled in the left pelvis. There is no residual fluid collection immediately adjacent to the catheter. However, there is a curvilinear, irregular collection of fluid and gas superior to the tortuous sigmoid colon, series 2, image 63 and coronal image 60, measuring 4.1 x 2.3 x 4 cm consistent with a residual peridiverticular abscess. This extends anteriorly into the mesentery on image 67 as well. ABDOMINAL WALL: No significant hernia is appreciated. LYMPH NODES: Normal-sized subcentimeter retroperitoneal lymph nodes are present. No pathologically enlarged lymphadenopathy in the abdomen or pelvis. VASCULAR: Normal caliber abdominal aorta. Moderate calcified atherosclerotic changes. PELVIC VISCERA: Diminutive postmenopausal uterus seen. No adnexal mass. OSSEOUS STRUCTURES: Multilevel degenerative changes of the thoracolumbar spine. Convex right lumbar scoliosis. IMPRESSION: Interval placement of a left gluteal approach percutaneous pigtail drainage catheter, coiled in the left pelvis. There is no residual fluid collection immediately adjacent to the catheter. However, there continues to be sigmoid wall thickening with pericolonic fluid and fat stranding consistent with residual diverticulitis. Also, there is an irregular residual collection of fluid and gas, seen superior to the sigmoid colon. A portion of this collection extends to the left pelvis, slightly cephalad to the pigtail drain.
[2016-10-12 22:53] VITALS: BP 115/52
[2016-10-13 07:22] VITALS: BP 123/70
[2016-10-13 08:34] LABS: ABSOLUTE BASOPHIL COUNT 0 /CUMM (0.0-0.2); ABSOLUTE EOSINOPHIL COUNT 0.2 /CUMM (0.0-0.7); ABSOLUTE GRANULOCYTE CT 10.3 /CUMM (1.4-6.5); ABSOLUTE LYMPH COUNT 0.9 /CUMM (1.2-3.4); ABSOLUTE MONOCYTE COUNT 0.6 /CUMM (0.10-0.60); BASOPHIL % 0.3 % (0.0-2.0); EOSINOPHIL % 1.3 % (0-5); GRANULOCYTE % 85.7 % (42.2-75.2); HEMATOCRIT 32.3 % (37-47); MEAN CORPUSCULAR HGB 27.5 PG (27.0-31.0); MEAN CORPUSCULAR HGB CONC 32.3 G/DL (33.0-37.0); MEAN CORPUSCULAR VOLUME 85.3 FL (81.0-99.0); MEAN PLATELET VOLUME 7.3 FL (7.4-10.4); PLATELET COUNT 448 /CUMM (130-400); RBC DISTRIBUTION WIDTH 14.4 % (11.5-14.5); RED BLOOD CELL CT 3.78 /CUMM (4.20-5.40); WHITE BLOOD CELL COUNT 12.1 /CUMM (4.8-10.8)
--- NOTE | 2016-10-13 10:08 | PN- General Surgery ---
Surgical Brief Attending Note Brief Attending Note: DOING WELL. NO PAIN. CT REVIEWED WITH IR. ABSCESS RESOLVED. OUTPUT SCANT. D/C DRAIN AND D/C HOME WITH ORAL KEFLEX/FLAGYL
--- NOTE | 2016-10-13 10:37 | Patient Discharge Instructions ---
Discharge Instructions General Discharge Information You were seen/treated for: diverticulitis with abscess You had these procedures: IR percutaneous drainage Watch for these problems: fever>101.3, increased pain, nausea/vomiting Diet Continue normal diet: No Recommended Diet: Low Residue Activity Full Activity/No Limits: Yes Activity Self Limited: Yes Acute Coronary Syndrome Inclusion Criteria At DC or during hospital stay patient has or had the following: ACS DIAGNOSIS No Discharge Core Measures Meds if any: Prescribed or Continued at Discharge Meds if any: NOT Prescribed or Continued at Discharge Congestive Heart Failure Inclusion Criteria At DC or during hospital stay patient has or had the following: CHF DIAGNOSIS No Discharge Core Measures Meds if any: Prescribed or Continued at Discharge Meds if any: NOT Prescribed or Continued at Discharge Cerebrovascular accident Inclusion Criteria At DC or during hospital stay patient has or had the following: CVA/TIA Diagnosis No Discharge Core Measures Meds if any: Prescribed or Continued at Discharge Meds if any: NOT Prescribed or Continued at Discharge Venous thromboembolism Inclusion Criteria VTE Diagnosis No VTE Type NONE VTE Confirmed by (Test) NONE Discharge Core Measures - Per Current guidelines, there needs to be overlap - treatment for the first 5 days of Warfarin therapy. - If discharged on Warfarin prior to 5 days of - overlap therapy, the patient will need to be - assessed for post discharge needs including - *Post discharge parental anticoagulation - *Warfarin and/or parental anticoagulation education - *Follow up date to check INR post discharge At least 5 days overlap therapy as Inpatient No Meds if any: Prescribed or Continued at Discharge Note: Overlap Therapy is Warfarin and Anticoagulant Meds if any: NOT Prescribed or Continued at Discharge
[2016-10-13] MEDS ORDERED: FLAGYL500 MG PO (10:41)
[2016-10-13] MEDS ORDERED: ULTRAM50 M1 PO (10:41)
[2016-10-13] MEDS ORDERED: KEFLEX500 M1 PO (10:41)
--- NOTE | 2016-10-21 10:06 | Surgical Discharge Summary ---
Visit Information Visit Dates Admission Date: 10/07/16 Discharge Date: 10/13/16 History of Present Illness Chief Complaint: abdominal pain Medical History Blood Transfusion Hx: No Neurological: NONE EENT: NONE Cardiovascular: hyperlipidemia Respiratory: NONE Gastrointestinal: diverticulitis, GERD Hepatic: NONE Renal: NONE Musculoskeletal: NONE Psychiatric: NONE Endocrine: NEWLY DIAGNOSED TYPE 2 DAIBETES History of MRSA: No History of VRE: No History of CDIFF: No Isolation History: Standard Surgical History Pertinent Surgical History: bunions Psychosocial History Where Do You Live? Home Who Do You Live With? Family Services at Home: None What is Your Primary Language? Hebrew ETOH Use: RECOVERING ALCOHOLIC Review of Systems: not assessed at d/c Hospital Course Course Attending Physician: ALBERTO WYMAN,ELIJAH Miles Primary Care Physician: DANIKA BAKER MD Hospital Course: admitted for bowel rest, iv abx and percutaneous drainage of diverticular abscess. she developed fevers, spiking requiring continued inpatient management. cultures show resistent ecoli. abx tailored. follow up ct showed resolution of abscess. drain removed and d/c home. Allergies: Coded Allergies: oxycodone (PER PT DOES NOT WANT NARCOTICS 10/06/16) Significant Procedures: percutaneous drainage diverticular abscess. Disposition Summary Disposition Principal Diagnosis: diverticulitis with pelvic abscess Additional Diagnosis: none Discharge Disposition: home or self care Discharge Instructions General Discharge Information Code Status: Full Code Patient's Diet: low fiber Patient's Activity: self limited Follow-Up Instructions/Appts: 2 weeks for f/u ct Medications at Discharge Discharge Medications: Continue taking these medications: Simvastatin (Zocor*) 20 MG TABLET 1 Tablet ORAL Every night Comments: NOT GIVEN Omeprazole (Omeprazole) 40 MG CAPSULE.DR 1 Capsule ORAL DAILY Qty = 30 Comments: NOT GIVEN Cholecalciferol (Vitamin D3) (Vitamin D) (Unknown Strength) CAPSULE 1 Tablet ORAL DAILY Comments: NOT GIVEN Magnesium Oxide (Magnesium) (Unknown Strength) CAPSULE 1 Tablet ORAL DAILY Comments: Last Taken: 10/13/16 Time: 0800AM Ibuprofen (Advil) 200 MG CAPSULE 2 Capsule ORAL as needed for PAIN Comments: NOT GIVEN Polyethylene Glycol 3350 (Glycolax) 17 GRAM/DOSE POWDER 17 Gram ORAL as needed for GI Comments: NOT GIVEN Start taking the following new medications: Tramadol HCl (Ultram) 50 MG TABLET 1-2 Tablet ORAL EVERY 4-6 HOURS NEEDED as needed for pain control Qty = 30 No Refills Comments: Last Taken: 10/12/16 Time: 0600AM Cephalexin (Keflex) 500 MG CAPSULE 1 Capsule ORAL 4 TIMES A DAY Qty = 28 No Refills Comments: NOT GIVEN Metronidazole (Flagyl) 500 MG TABLET 1 Tablet ORAL THREE TIMES DAILY Qty = 21 No Refills Comments: Last Taken: 10/13/16 Time: 0600AM Copies To: OLIVIA WYMAN,DANIKA Florentino
== END 2016-10-13 12:34 | DRG 392 ==
LOC: ERH 21:54 → 2NB 10-07 00:40 → ERHI 10-07 00:40 → ENRESERV 10-07 00:50 → 2NB 10-07 01:30 → ENPENDDIS 10-13 10:36 → 2NB 10-13 12:34
PROVIDERS: Nurse Practitioner; Physician Assistant; Physician Assistant Medical; Physician Assistant Surgical; ADMIT Surgery
PROC: 0D9N30Z Drainage of Sigmoid Colon with Drainage Device, Percutaneous Approach (ICD-10-PCS; principal; 2016-10-07)
DX: K57.20 Diverticulitis of large intestine with perforation and abscess without bleeding (principal); E11.9 Type 2 diabetes mellitus without complications; E78.5 Hyperlipidemia, unspecified; K21.9 Gastro-esophageal reflux disease without esophagitis; F17.200 Nicotine dependence, unspecified, uncomplicated
CPT/HCPCS: 2NBP; 87075; 36415; 74177; 75989; 82436; 87040; 93005; 93010; 96365; J0690; J1815; J2405; J2550; J7042

== ENCOUNTER 2017-05-12 04:18 | Inpatient (IN) | payer OTHER ==
--- NOTE | 2017-05-11 12:23 | History & Physical Pre-Op ---
General Information and HPI History of Present Illness: Patient is 3 months post hartmans procedure for diverticular abscess. She is ready for colostomy reversal in May. She feels well. back to baseline function and activity. Allergies/Medications Allergies: Coded Allergies: No Known Allergies (05/06/17) Home Med list Cholecalciferol (Vitamin D3) (Vitamin D) 2,000 UNIT CAPSULE 1 CAP PO DAILY PROPHO (Reported) Omeprazole 40 MG CAPSULE.DR 1 CAP PO DAILY GI (Reported) Simvastatin (Zocor*) 20 MG TABLET 1 TAB PO QPM CHOLESTEROL (Reported) Past History Medical History Neurological: NONE EENT: NONE Cardiovascular: hyperlipidemia Respiratory: NONE Gastrointestinal: diverticulitis, GERD Hepatic: NONE Renal: NONE Musculoskeletal: NONE Psychiatric: NONE Endocrine: NEWLY DIAGNOSED TYPE 2 DM History of MRSA: No History of VRE: No History of CDIFF: No Surgical History Pertinent Surgical History: colon resection (with colostomy), bunions Past Family/Social History Psychosocial History Services at Home None Review of Systems Review of Systems: Patient reports back pain but reports no muscle aches, no muscle weakness, and no arthralgias/joint pain. She reports no fatigue, no fever, no night sweats, no significant weight gain, and no exercise intolerance. She reports no abnormal moles, no jaundice, no hives, no eczema, and no rashes. She reports no cough, no wheezing, no shortness of breath, and no coughing up blood. She reports no chest pain, no arm pain on exertion, no shortness of breath when walking, no shortness of breath when lying down, no palpitations, and no leg swelling. She reports no abdominal pain, no vomiting, no vomiting blood, normal appetite, no diarrhea, no constipation, no rectal bleeding, and no history of GERD. She reports no incontinence, no difficulty urinating, no hematuria, and no increased frequency. Exam & Diagnostic Data Physical Exam: Patient is a 62-year-old female. Constitutional: General Appearance: healthy-appearing, well-developed, and overweight. Level of Distress: no acute distress. Ambulation: ambulating normally. Head: Head: normocephalic and atraumatic. Neck: Neck: supple, trachea midline, no masses, and full range of motion. Thyroid: no enlargement or nodules and non-tender. Lymph Nodes: no cervical LAD, supraclavicular LAD, axillary LAD, or inguinal LAD. Abdomen: Inspection and Palpation: no tenderness, guarding, masses, rebound tenderness, or CVA tenderness and soft and non-distended. Bowel Sounds: normal. Liver: non-tender and no hepatomegaly. Spleen: non-tender and no splenomegaly. Hernia: none palpable; stoma LLQ. Skin: Inspection and palpation: no rash, lesions, ulcer, induration, nodules, jaundice, or abnormal nevi and good turgor. Musculoskeletal:: Extremities: no cyanosis, edema, varicosities, or palpable cord. Motor Strength and Tone: normal tone and motor strength. Joints, Bones, and Muscles: no contractures, malalignment, tenderness, or bony abnormalities and normal movement of all extremities. Assessment/Plan Assessment/Plan: 1. Abscess of sigmoid colon co-occurrent and due to diverticulitis - Ready for reversal. plan laparoscopic reversal in May. K57.20: Diverticulitis of large intestine with perforation and abscess without bleeding 2. Colostomy present Z93.3: Colostomy status Discussion Notes Discussed the risk of surgery including but not limited to: bleeding requiring transfusion, infection, anastomotic leak requiring reoperation as well as medical complications including cardiac, pulmonary and thromboembolism. As Ranked By This Provider Problem List: 1. Diverticular disease of intestine with perforation and abscess 2. Presence of colostomy
[~2017-05-12] VITALS: Ht 160 cm; Wt 76.7 kg
[~2017-05-12 04:18] MED LIST changes: +ADVIL200 M1 PO; +COLACE100 M1 PO; +FLAGYL500 MG PO; +GLYCOLAX119 GM PO; +IBUPROFEN200 M2 PO; +KEFLEX500 M1 PO; +MAGNESIUM400 M1 PO; +OMEPRAZOLE40 M1 PO; +ULTRAM50 M1 PO; +VITAMIN D2000 UNIT PO
--- NOTE | 2017-05-12 11:06 | Admission Core Measures ---
Acute Coronary Syndrome (CM) ACS Core Measures Acute Coronary Syndrome Diagnosis No Congestive Heart Failure (NEW) CHF Core Measures Congestive Heart Failure Diagnosis No Cerebrovascular Accident (NEW) CVA Core Measures CVA/TIA Diagnosis No Venous Thromboembolism VTE Core Kassidy (View Protocol) VTE Risk Factors Surgery No Mechanical VTE Prophylaxis d/t N/A MechProphylax Ordered No VTE Pharm Prophylaxis d/t NA PharmProphylax ordered Problem List As ranked by this Provider includes Assessment & Plan 1. S/P colostomy HOME MEDS Home Med List Cholecalciferol (Vitamin D3) (Vitamin D) 2,000 UNIT CAPSULE 1 CAP PO DAILY PROPHO (Reported) Omeprazole 40 MG CAPSULE.DR 1 CAP PO DAILY GI (Reported) Simvastatin (Zocor*) 20 MG TABLET 1 TAB PO QPM CHOLESTEROL (Reported)
--- NOTE | 2017-05-12 11:26 | Operative Report ---
Operative/Inv Procedure Report Surgery Date: 05/12/17 Name of Procedure: Laparoscopic colostomy reversal Pre-Operative Diagnosis: Diverticulitis with colostomy Post-Operative Diagnosis: Same Estimated Blood Loss: less than 50ml Surgeon/Pipe Finishing Supervisor: Gamaliel WYMAN,Fredis Miles/Naty IBANEZ Anesthesia: general endotracheal tube Implants: 31 mm EEA Operative Indication: See preoperative H&P Operative/Procedure Note Note: After consent is brought to the OR and laid supine. Gen. anesthesia was obtained and she was placed in lithotomy position. Skin above the umbilicus was infiltrated local anesthesia transverse incision made through pre-existing scar. Dissected down to the fascia and grasped with Enrico's. Fasciotomies crated sharply and stay sutures placed. A blunt Livingston port was placed and pneumoperitoneum achieved. A 5 mm ports placed in the right mid abdomen and 12 mm port was placed in the right lower quadrant after local anesthesia was instilled under direct vision the camera. There were adhesions of small bowel to the lower midline incision. These were taken down sharply. A second 5 mm port was then placed in the suprapubic region. There were adhesions of small bowel into the pelvis which were taken down which sharply. I was unable to evacuate all the intestine out of the pelvis. Rectal stump was identified and freed up. At this point we took down the colostomy to make an elliptical incision around it. The subcutaneous tissues tissues dissected with cautery. We dissected down to the fascia and circumferentially dissected it to the level abdominal wall. At this point the stoma was freely mobile and colon brought up through the wound. The colon the traversed the abdominal wall was resected. Automatic pursestring applied and colon sized to 31 EEA anvil. The anvil placed in an pursestring cinched up. Fatty tissue overlying the proposed staple line was removed with cautery. The intervals and placed the peritoneal cavity and stoma site closed in 2 layers of 0 Maxon suture. Pneumoperitoneum was then reachieved and turned attention laparoscopically to the pelvis. I broke scrub and below performed rigid proctoscopy. Sizer placed up to the rectal stump. 31 EEA stapler was then placed under direct vision. Chose an anterior site of the upper rectum to perform anastomosis. The spike was deployed and the anvil attached. An anastomosis and created without difficulty. 2 intact donuts were seen. The anastomosis was then inspected under gas insufflation with no leaks seen. I then scrubbed back in and performed irrigation. There is no of his hemorrhage. The anastomosis was intact without evidence of leak. Within remove the ports and passed off the field. The fascia was closed with 0 Vicryl suture. Skin incisions closed with rosa. Sterile dressings were applied CC: David WYMAN,Freddie Florentino
[2017-05-12 14:45] VITALS: BP 142/88
--- NOTE | 2017-05-12 15:46 | PN- General Surgery ---
Subjective Subjective: POSTOP CHECK feeling well, minimal pain, very happy to no longer have colostomy. no n/v/cp/ sob. no oob yet. +uo via huff. neeraj sips liquids, awaiting clr liquid tray. Objective Vital Signs and I&Os Vital Signs Date Time Temp Pulse Resp B/P B/P Pulse O2 O2 Flow FiO2 Mean Ox Delivery Rate 05/12 1454 Room Air 05/12 1445 97.8 96 18 142/88 95 Room Air Intake & Output 05/12 1600 05/12 0800 05/12 0000 05/11 1600 05/11 0800 05/11 0000 Intake Total Output Total Balance Patient 170 lb Weight Weight Reported by Patient Measurement Method Physical Exam: GEN- NAD CARD- s1s2 RRR PULM- CTAB ABD- ttp, incisions dressed with some serosang staining, +bs throughout EXT- calves soft nt, alps on bl Assessment/Plan Assessment/Plan A- POD0 sp colostomy reversal, stable, with well controlled postop pain. P- -prn pain meds - clr liquid diet as tolerated - oob, ambulate, alps, hep sq - home meds - abx x23h postop - huff overnight, dc in am - I&Os - Dc planning - will dw attending Core Measures Venous Thromboembolism VTE Risk Factors Surgery No Mechanical VTE Prophylaxis d/t N/A MechProphylax Ordered No VTE Pharm Prophylaxis d/t NA PharmProphylax ordered
[2017-05-12 20:48] VITALS: BP 112/60
[2017-05-13] VITALS (7 sets, daily range): BP systolic 102–114; BP diastolic 54–74
[2017-05-13 09:20] LABS: ABSOLUTE BASOPHIL COUNT 0 /CUMM (0.0-0.2); ABSOLUTE EOSINOPHIL COUNT 0 /CUMM (0.0-0.7); ABSOLUTE GRANULOCYTE CT 11.7 /CUMM (1.4-6.5); ABSOLUTE LYMPH COUNT 1.2 /CUMM (1.2-3.4); BASOPHIL % 0 % (0.0-2.0); EOSINOPHIL % 0 % (0-5); HEMATOCRIT 38.5 % (37-47); MEAN CORPUSCULAR HGB 30.1 PG (27.0-31.0); MEAN CORPUSCULAR HGB CONC 33.4 G/DL (33.0-37.0); MEAN CORPUSCULAR VOLUME 90.3 FL (81.0-99.0); MEAN PLATELET VOLUME 8.5 FL (7.4-10.4); PLATELET COUNT 312 /CUMM (130-400); RBC DISTRIBUTION WIDTH 13.9 % (11.5-14.5); RED BLOOD CELL CT 4.26 /CUMM (4.20-5.40)
--- NOTE | 2017-05-13 09:25 | PN- General Surgery ---
See Addendum Subjective Subjective: Patient feeling well, pain is well controlled. She feels a lot better after the surgery and she did her last surgery. She had her Falcon removed, is attempting to void. No bowel movements, no flatus. Objective Vital Signs and I&Os Vital Signs Date Time Temp Pulse Resp B/P B/P Pulse O2 O2 Flow FiO2 Mean Ox Delivery Rate 05/13 0743 98.3 70 18 110/60 93 Room Air 05/13 0416 98.8 72 18 108/66 93 Room Air 05/13 0007 98.4 80 20 112/74 100 Room Air 05/12 2048 98.9 97 20 112/60 93 05/12 1454 Room Air 05/12 1445 97.8 96 18 142/88 95 Room Air Intake & Output 05/13 1600 05/13 0800 05/13 0000 05/12 1600 05/12 0800 05/12 0000 Intake Total 240 1100 Output Total 1100 350 Balance -860 750 Intake, IV 400 Intake, Oral 240 700 Number 0 Bowel Movements Output, Urine 1100 350 Patient 170 lb Weight Weight Reported by Patient Measurement Method Physical Exam: Well-developed well-nourished no apparent distress. HEENT: Atraumatic, extraocular motion intact Neck: Supple, no lymphadenopathy Respiratory: No respiratory distress Abdomen: Soft, minimally tender at the midline. Dressing is bloody, dry. Hypoactive bowel sounds. Extremities: No edema, no calf pain Neuro: Alert and oriented x3 Psych: Mood affect normal, normal memory normal judgment. Skin: Warm and dry, no rash on exposed skin Results Last 48 Hours of Labs: Laboratory Tests 05/13 0742 Chemistry Sodium Pending Potassium Pending Chloride Pending Carbon Dioxide Pending Anion Gap Pending BUN Pending Creatinine Pending BUN/Creatinine Ratio Pending Hematology CBC w Diff Pending WBC Pending RBC Pending Hgb Pending Hct Pending MCV Pending MCH Pending RDW Pending Plt Count Pending MPV Pending PUBS MCHC Pending Assessment/Plan Assessment/Plan A- POD1 sp colostomy reversal, stable P- prn pain meds clr liquid diet as tolerated oob, ambulate, alps, hep sq home meds Falcon removed, trial of void I&Os Packing changed tomorrow Monitor for return of bowel function dw attending Core Measures Venous Thromboembolism VTE Risk Factors Surgery No Mechanical VTE Prophylaxis d/t N/A MechProphylax Ordered No VTE Pharm Prophylaxis d/t NA PharmProphylax ordered
[2017-05-13 09:41] LABS: WHITE BLOOD CELL COUNT 13.9 /CUMM (4.8-10.8)
[2017-05-13 10:23] LABS: GRANULOCYTE % 84.2 % (42.2-75.2)
[2017-05-14 06:25] VITALS: BP 120/56
--- NOTE | 2017-05-14 07:46 | PN- General Surgery ---
See Addendum Subjective Subjective: Still with some pain although getting better. Positive flatus, no bowel movement, no nausea no vomiting. Due to her history of addiction, she does not want to take by mouth narcotics Objective Vital Signs and I&Os Vital Signs Date Time Temp Pulse Resp B/P B/P Pulse O2 O2 Flow FiO2 Mean Ox Delivery Rate 05/14 0625 98.4 82 20 120/56 92 05/13 2205 98.6 82 18 114/66 92 Room Air 05/13 1816 98.1 79 20 106/60 92 Room Air 05/13 1414 98.5 80 18 114/60 96 Room Air 05/13 1136 98.3 60 18 102/54 97 Room Air 05/13 0743 98.3 70 18 110/60 93 Room Air Intake & Output 05/14 0800 05/14 0000 05/13 1600 05/13 0805/13 0000 05/12 1600 Intake Total 595 768 6812 Output Total 500 015 715 8068 350 Balance -500 -550 825 -860 750 Intake, IV 100 400 Intake, Oral 850 240 700 Number 0 Bowel Movements Output, Urine 500 498 673 8753 350 Patient 170 lb Weight Weight Reported by Patient Measurement Method Physical Exam: Well-developed well-nourished no apparent distress. HEENT: Atraumatic, extraocular motion intact Neck: Supple, no lymphadenopathy Respiratory: No respiratory distress Abdomen: Incisions clean dry and intact, dressings changed, moderate amount of dry bloody drainage at the stoma site. Packing was removed and replaced with iodoform. Dry sterile dressings applied. Positive bowel sounds Extremities: No edema, no calf pain Neuro: Alert and oriented x3 Psych: Mood affect normal, normal memory normal judgment. Skin: Warm and dry, no rash on exposed skin Results Last 48 Hours of Labs: Laboratory Tests 05/13 0742 Chemistry Sodium (137 - 145 mmol/L) 138 Potassium (3.5 - 5.1 mmol/L) 4.8 Chloride (98 - 107 mmol/L) 106 Carbon Dioxide (22 - 30 mmol/L) 22 Anion Gap (5 - 16) 10 BUN (7 - 17 mg/dL) 15 Creatinine (0.5 - 1.0 mg/dL) 0.7 Estimated GFR (>60 ml/min) > 60 BUN/Creatinine Ratio (7 - 25 %) 21.4 Hematology CBC w Diff NO MAN DIFF REQ WBC (4.8 - 10.8 /CUMM) 13.9 H RBC (4.20 - 5.40 /CUMM) 4.26 Hgb (12.0 - 16.0 G/DL) 12.9 Hct (37 - 47 %) 38.5 MCV (81.0 - 99.0 FL) 90.3 MCH (27.0 - 31.0 PG) 30.1 RDW (11.5 - 14.5 %) 13.9 Plt Count (130 - 400 /CUMM) 312 MPV (7.4 - 10.4 FL) 8.5 Gran % (42.2 - 75.2 %) 84.2 H Lymphocytes % (20.5 - 51.1 %) 8.9 L Monocytes % (1.7 - 9.3 %) 6.9 Eosinophils % (0 - 5 %) 0 Basophils % (0.0 - 2.0 %) 0 Absolute Granulocytes (1.4 - 6.5 /CUMM) 11.7 H Absolute Lymphocytes (1.2 - 3.4 /CUMM) 1.2 Absolute Monocytes (0.10 - 0.60 /CUMM) 1.0 H Absolute Eosinophils (0.0 - 0.7 /CUMM) 0 Absolute Basophils (0.0 - 0.2 /CUMM) 0 PUBS MCHC (33.0 - 37.0 G/DL) 33.4 Assessment/Plan Assessment/Plan A- POD2 sp colostomy reversal, stable P- prn pain meds clr liquid diet as tolerated, possible advance to fulls today, will dw attending oob, ambulate, alps, hep sq home meds I&Os Packing change daily Monitor for return of bowel function Core Measures Venous Thromboembolism VTE Risk Factors Surgery No Mechanical VTE Prophylaxis d/t N/A MechProphylax Ordered No VTE Pharm Prophylaxis d/t NA PharmProphylax ordered
[2017-05-14 15:09] VITALS: BP 108/64
[2017-05-14 22:22] VITALS: BP 112/60
[2017-05-15 06:32] VITALS: BP 114/72
[2017-05-15 14:06] VITALS: BP 104/66
--- NOTE | 2017-05-15 16:34 | PN- General Surgery ---
See Addendum Subjective Subjective: Patient has no major complaints. She was started on low residue diet this morning, which she is tolerating. She admits that her appetite is not great, but she continues to pass flatus. No bowel movement as of yet. She otherwise ambulates independently. Objective Vital Signs and I&Os Vital Signs Date Time Temp Pulse Resp B/P B/P Pulse O2 O2 Flow FiO2 Mean Ox Delivery Rate 05/15 1406 98.2 79 18 104/66 95 Room Air 05/15 0632 97.6 79 20 114/72 95 Room Air 05/14 2222 98.1 83 20 112/60 93 Intake & Output 05/15 1600 05/15 0800 05/15 0000 05/14 1600 05/14 0800 05/14 0000 Intake Total 610 360 360 900 Output Total 200 500 550 Balance 410 360 360 900 -500 -550 Intake, IV 10 Intake, Oral 600 360 360 900 Number 1 Bowel Movements Output, Urine 200 500 550 Patient 169 lb Weight Physical Exam: General: Patient is awake and alert. No acute distress. Cardiac: regular Pulmonary: CTA bilaterally Abdomen: Soft and mildly distended. Minimally tender, within expected limits. Packing was changed from the ostomy site. There is a small amount of serous drainage. No erythema or purulence noted. Normal BS are heard. Extremities: no edema or calf tenderness. Assessment/Plan Assessment/Plan Patient is a 62-year-old female with a history of diverticular abscess resulting in Renee's procedure, who is now postoperative day #3 status post laparoscopic colostomy reversal. She continues to progress well. We are still awaiting bowel movement. Plan: -Continue low residue diet. -Pain control with Percocet or Tylenol as needed. -Subcutaneous heparin and Alps for DVT prophylaxis. -Continue dressing and packing changes once daily. -Discharge planning for tomorrow most likely if patient continues to tolerate her diet and has a bowel movement. Update as of 7:30 pm: Pt had a BM and was instructed on packing change procedure , as she has opted to not have visiting nurses. Plan for discharge tomorrow morning. Core Measures Venous Thromboembolism VTE Risk Factors Surgery No Mechanical VTE Prophylaxis d/t N/A MechProphylax Ordered No VTE Pharm Prophylaxis d/t NA PharmProphylax ordered
[2017-05-15] MEDS ORDERED: PERCOCET 5-3251 EACH PO (19:54)
--- NOTE | 2017-05-15 19:58 | Patient Discharge Instructions ---
Discharge Instructions General Discharge Information You were seen/treated for: Diverticular abscess, status post Renee's procedure during previous admission You had these procedures: Laparoscopic colostomy reversal Watch for these problems: Fever greater than 101, abdominal pain, nausea, vomiting, chest pain, shortness of breath, drainage of pus from the wounds Call Surgeon to remove: [place] (2 weeks postop) Do not soak the wound: Yes No bath, but you may shower: Yes Other wound care: He may shower as desired. Packing changes with overlying dry gauze to the left lower quadrant incision once daily until seen by [email or web address] Diet Continue normal diet: No Recommended Diet: Low Residue Activity Full Activity/No Limits: No Activity Self Limited: Yes Pounds, do NOT lift more than: 5 Other activity limits: No strenuous activity or heavy lifting, pushing, or pulling greater than 5 pounds. [address] while using narcotics. Ambulation is encouraged. Limit the use of narcotics to prevent constipation. Acute Coronary Syndrome Inclusion Criteria At DC or during hospital stay patient has or had the following: ACS DIAGNOSIS No Discharge Core Measures Meds if any: Prescribed or Continued at Discharge Meds if any: NOT Prescribed or Continued at Discharge Congestive Heart Failure Inclusion Criteria At DC or during hospital stay patient has or had the following: CHF DIAGNOSIS No Discharge Core Measures Meds if any: Prescribed or Continued at Discharge Meds if any: NOT Prescribed or Continued at Discharge Cerebrovascular accident Inclusion Criteria At DC or during hospital stay patient has or had the following: CVA/TIA Diagnosis No Discharge Core Measures Meds if any: Prescribed or Continued at Discharge Meds if any: NOT Prescribed or Continued at Discharge Venous thromboembolism Inclusion Criteria VTE Diagnosis No VTE Type NONE VTE Confirmed by (Test) NONE Discharge Core Measures - Per Current guidelines, there needs to be overlap - treatment for the first 5 days of Warfarin therapy. - If discharged on Warfarin prior to 5 days of - overlap therapy, the patient will need to be - assessed for post discharge needs including - *Post discharge parental anticoagulation - *Warfarin and/or parental anticoagulation education - *Follow up date to check INR post discharge At least 5 days overlap therapy as Inpatient No Meds if any: Prescribed or Continued at Discharge Note: Overlap Therapy is Warfarin and Anticoagulant Meds if any: NOT Prescribed or Continued at Discharge
[2017-05-15 22:16] VITALS: BP 102/62
[2017-05-15 22:18] VITALS: BP 106/60
[2017-05-16 06:31] VITALS: BP 102/70
[2017-05-16] MEDS ORDERED: TYLENOL EXTRA500 M2 PO (07:45)
--- NOTE | 2017-05-16 07:50 | PN- General Surgery ---
Subjective Subjective: Awake, alert No complaints overnight Tolerating diet without nausea or pain +BM - wants to go home Objective Vital Signs and I&Os Vital Signs Date Time Temp Pulse Resp B/P B/P Pulse O2 O2 Flow FiO2 Mean Ox Delivery Rate 05/16 630 97.4 73 20 102/70 93 Room Air 05/15 2218 97.7 67 20 106/60 97 05/15 2216 97.9 88 20 102/62 93 05/15 1406 98.2 79 18 104/66 95 Room Air Intake & Output 05/16 0805/16 0000 05/15 1600 05/15 0800 05/15 0000 05/14 1600 Intake Total 480 480 610 360 360 900 Output Total 200 Balance 480 480 410 360 360 900 Intake, IV 10 Intake, Oral 480 480 600 360 360 900 Number 1 Bowel Movements Output, Urine 200 Patient 169 lb Weight Physical Exam: afebrile, vss General: alert and oriented times three Abd: soft, nondistended, nontender, good bs Wound: looks good, rosa intact, no erythema or drainage Packing changed by patient - observed - no issues with changing - tolerated well , packing removed is clean Assessment/Plan Assessment/Plan 62yo female s/p colostomy reversal dc home pt does not want home nursing daily packing changes by patient until seen by MD follow up within [address] Alston All questions answered Pt does not want any pain meds at discharge Recommend ES tylenol as needed Core Measures Venous Thromboembolism VTE Risk Factors Surgery No Mechanical VTE Prophylaxis d/t N/A MechProphylax Ordered No VTE Pharm Prophylaxis d/t NA PharmProphylax ordered
--- NOTE | 2017-05-17 13:37 | Surgical Discharge Summary ---
Visit Information Visit Dates Admission Date: 05/12/17 Discharge Date: 05/16/17 History of Present Illness Chief Complaint: colostomy Medical History Blood Transfusion Hx: No Neurological: NONE EENT: NONE Cardiovascular: hyperlipidemia Respiratory: NONE Gastrointestinal: diverticulitis, GERD Hepatic: NONE Renal: NONE Musculoskeletal: NONE Psychiatric: anxiety Endocrine: NEWLY DIAGNOSED TYPE 2 DM Blood Disorders: NONE Cancer(s): NONE ORE FEEDER/Reproductive: NONE History of MRSA: No History of VRE: No History of CDIFF: No Surgical History Pertinent Surgical History: colon resection (with colostomy), bunions, laparoscopic colostomy reversal Psychosocial History Where Do You Live? Home Who Do You Live With? Family Services at Home: None What is Your Primary Language? Occitan Review of Systems: see preop hp Hospital Course Course Attending Physician: Fredis Alston MD Primary Care Physician: Freddie Hernandez MD Allergies: Coded Allergies: No Known Allergies (05/06/17) Discharge Instructions Medications at Discharge Discharge Medications: Continue taking these medications: Simvastatin (Zocor*) 20 MG TABLET 1 Tablet ORAL Every night Comments: Last Taken: 05/15/17 Time: 09:30 PM LIPITOR GIVEN SUBSTITUTION Omeprazole (Omeprazole) 40 MG CAPSULE.DR 1 Capsule ORAL DAILY Qty = 30 Comments: Last Taken: 05/16/17 Time: 05:30 AM Cholecalciferol (Vitamin D3) (Vitamin D) 2,000 UNIT CAPSULE 1 Capsule ORAL DAILY Comments: NOT GIVEN WHILE IN HOSPITAL Start taking the following new medications: Acetaminophen (Tylenol Extra Strength) 500 MG TABLET 1 Tablet ORAL THREE TIMES DAILY as needed for pain Qty = 10 No Refills Comments: Last Taken: 05/15/17 Time: 1215 PM
== END 2017-05-16 09:58 | DRG 345 ==
LOC: SDA 04:18 → ENRESERV 12:36 → ENTRNSPT 13:45 → EDTRNSPTSTS 14:22 → 2NA 14:29 → CMPTRNSPT 14:46 → ENPENDDIS 05-16 08:04 → ENTRNSPT 05-16 09:42 → 2NA 05-16 09:58 → CMPTRNSPT 05-16 10:10
PROVIDERS: Physician Assistant Surgical
PROC: 0DSN4ZZ Reposition Sigmoid Colon, Percutaneous Endoscopic Approach (ICD-10-PCS; principal; 2017-05-12)
DX: Z43.3 Encounter for attention to colostomy (principal); K57.20 Diverticulitis of large intestine with perforation and abscess without bleeding; E11.9 Type 2 diabetes mellitus without complications; E78.5 Hyperlipidemia, unspecified; K21.9 Gastro-esophageal reflux disease without esophagitis
CPT/HCPCS: 2NAP; 36415; 82436; 87086; 88304; J0131; J1170; J1644; J2250; J2405; J3010; J3101; J7042